=== PATIENT | male | born 1995 | race Caucasian/White ===

== ENCOUNTER 2022-07-17 22:23 | Emergency (ER) | payer OTHER ==
[2022-07-17] MEDS ORDERED: Sodium Chloride 0.9% 1000 ML 1,000 ML IV STA (23:02)
--- NOTE | 2022-07-17 23:08 | ERPHSYRPT ---
- History of Present Illness Time Seen by Provider: 07/17/22 22:50 Historian: patient, EMS Exam Limitations: no limitations Patient Subjective Stated Complaint: EMS states "he started having flank pain and rib pain about 20 mins ago. He says he has been eating and drinking okay. I think it is anxiety related." Triage Nursing Assessment: Pt presents to ED by Medic 1, pt alert and oriented x3, pt c/o mainly rib pain bilaterally, ems states that he was complaining of flank pain but pt is mainly holding and c/o of rib pain on both sides that star shaun around 2200, pt oral intake was around 2200, pt last BM was 07/17/2022 in AM, pt is very anxious in triage, pt was rating pain 10/10 when he called ambulance but now is rating 7/10 pain, pt did not take any thing for pain, pt states it hurt when he takes a deep breath Physician History: This is a 26-year-old white male who is on sertraline for depression and no other medications and presents via EMS because of significant bilateral upper quadrant abdominal pain and bilateral rib pain that was sudden onset approximately 20 minutes prior to arrival. Patient told EMS that the pain was a 10 out of 10 and without any treatment, the patient states his pain dropped to this 5-7 out of 10 in the emergency room. It is still present. He has never had anything like this before. He denies any kind of injury. Patient has been eating and drinking well without any problems Timing/Duration: today Quality: aching Abdominal Pain Onset Location: RUQ, LUQ Severity of Pain-Max: moderate Severity of Pain-Current: mild (Moderate) Associated Symptoms: denies symptoms Previous symptoms: no prior history Allergies/Adverse Reactions: No Known Drug Allergies Allergy (Verified 07/17/22 22:27) Hx Tetanus, Diphtheria Vaccination/Date Given: Yes Hx Influenza Vaccination/Date Given: No Hx Pneumococcal Vaccination/Date Given: No Immunizations Up to Date: Yes Travel Risk - International Travel Have you traveled outside of the country in past 3 weeks: No - Coronavirus Screening Are you exhibiting any of the following symptoms?: No Close contact with a COVID-19 positive Pt in past 14-21 Days: No - Vaccine Status Have you recieved a Covid-19 vaccination: Yes Warehouse Delivery Manager: Aras - Review of Systems Constitutional: No Symptoms Eyes: No Symptoms Ears, Nose, & Throat: No Symptoms Respiratory: No Symptoms Cardiac: No Symptoms Abdominal/Gastrointestinal: Abdominal Pain (Bilateral upper quadrants), No Nausea, No Vomiting, No Diarrhea, No Constipation Genitourinary Symptoms: No Symptoms Skin: No Symptoms, Rash (Bilateral lower ribs hurt as well) Neurological: No Symptoms Psychological: Anxiety, Depression Endocrine: No Symptoms Hematologic/Lymphatic: No Symptoms Immunological/Allergic: No Symptoms, Pollen Allergy - Past Medical History Pertinent Past Medical History: Yes Neurological History: No Pertinent History ENT History: No Pertinent History Cardiac History: No Pertinent History Respiratory History: No Pertinent History Endocrine Medical History: No Pertinent History Musculoskeletal History: No Pertinent History GI Medical History: No Pertinent History History: No Pertinent History Psycho-Social History: Depression Male Reproductive Disorders: No Pertinent History - Past Surgical History Past Surgical History: Yes Neuro Surgical History: No Pertinent History Cardiac: No Pertinent History Respiratory: No Pertinent History Gastrointestinal: No Pertinent History Genitourinary: No Pertinent History Musculoskeletal: Orthopedic Surgery Male Surgical History: No Pertinent History Other Surgical History: Left foot surgery - Social History Smoking Status: Never smoker Exposure to second hand smoke: No Drug Use: none Patient Lives Alone: Yes - Nursing Vital Signs Nursing Vital Signs: Initial Vital Signs Temperature 97.7 F 07/17/22 22:27 Pulse Rate 95 H 07/17/22 22:27 Respiratory Rate 18 07/17/22 22:27 Blood Pressure 124/80 07/17/22 22:27 O2 Sat by Pulse Oximetry 99 07/17/22 22:27 Pain Scale Pain Intensity [Right 7 Generalized] Pain Intensity 4 - Physical Exam General Appearance: no apparent distress, alert, anxiety Eye Exam: PERRL/EOMI, eyes nml inspection Ears, Nose, Throat Exam: dry mucous membranes Neck Exam: normal inspection, non-tender, supple, full range of motion Respiratory Exam: normal breath sounds, lungs clear, airway intact, No chest tenderness, No respiratory distress Cardiovascular Exam: regular rate/rhythm, normal heart sounds, normal peripheral pulses Gastrointestinal/Abdomen Exam: soft, normal bowel sounds, tenderness (Mild bilateral upper quadrants), guarding (Bilateral upper quadrants), No rebound Rectal Exam: not done Back Exam: normal inspection, normal range of motion, No CVA tenderness, No vertebral tenderness Extremity Exam: normal inspection, normal range of motion, pelvis stable Neurologic Exam: alert, oriented x 3, cooperative, clinical material handler II-XII nml as tested, normal mood/affect, nml cerebellar function, nml station & gait, sensation nml Skin Exam: normal color, warm, dry Lymphatic Exam: No adenopathy SpO2 Interpretation: normal SpO2: 99 O2 Delivery: Room Air - Course Nursing assessment & vital signs reviewed: Yes Ordered Tests: Active Orders 24 hr Category Date Time Status IV Insertion STAT Care 07/17/22 23:02 Active ABDOMEN AND PELVIS W/0 CONTRAS [CT] Stat Exams 07/18/22 00:30 Taken CHEST 1 VIEW (PORTABLE) Stat Exams 07/17/22 23:02 Taken AMYLASE Stat Lab 07/17/22 23:14 Completed CBC W DIFF Stat Lab 07/17/22 23:14 Completed CMP Stat Lab 07/17/22 23:14 Completed LIPASE Stat Lab 07/17/22 23:14 Completed UA W/RFX CULTURE Stat Lab 07/17/22 23:19 Completed Urine Triage Profile Stat Lab 07/17/22 23:19 Completed Medication Summary Discontinued Medications Generic Name Dose Route Start Last Admin Trade Name Anton PRN Reason Stop Dose Admin Sodium Chloride 1,000 mls @ 999 mls/hr 07/17/22 23:02 07/18/22 00:31 Sodium Chloride 0.9% 1000 Ml IV 07/18/22 00:02 Infused .Q1H1M STA Infusion Sodium Chloride Confirm 07/17/22 23:21 Sodium Chloride 0.9% 1000 Ml Administered 07/17/22 23:22 Dose 1,000 mls @ ud .ROUTE .STK-MED ONE Potassium Chloride 10 meq 07/18/22 00:21 07/18/22 00:27 Potassium Chloride Tab 10 Meq Tab PO 07/18/22 00:22 10 meq STAT ONE Administration Potassium Chloride Confirm 07/18/22 00:27 Potassium Chloride Tab 10 Meq Tab Administered 07/18/22 00:28 Dose 10 meq PO .STK-MED ONE Lab/Rad Data: Laboratory Result Diagrams 07/17/22 23:14 07/17/22 23:14 Laboratory Results 07/17/22 07/17/22 07/17/22 Range/Units 23:33 23:19 23:19 WBC (4.0-10.5) x10^3/uL RBC (4.1-5.6) x10^6/uL Hgb (12.5-18.0) g/dL Hct (42-50) % MCV (78-100) fL MCH (26-32) pg MCHC (32-36) g/dL RDW (11.5-14.0) % Plt Count (150-450) x10^3/uL MPV (7.5-11.0) fL Gran % (36.0-66.0) % Immature Gran % (Auto) (0.00-0.4) % Nucleat RBC Rel Count (0.00-0.1) % Eos # (Auto) (0-0.5) x10^3/uL Immature Gran # (Auto) (0.00-0.03) x10^3u/L Absolute Lymphs (auto) (1.0-4.6) x10^3/uL Absolute Monos (auto) (0.0-1.3) x10^3/uL Absolute Nucleated RBC (0.00-0.01) x10^3u/L Lymphocytes % (24.0-44.0) % Monocytes % (0.0-12.0) % Eosinophils % (0.00-5.0) % Basophils % (0.0-0.4) % Absolute Granulocytes (1.4-6.9) x10^3/uL Basophils # (0-0.4) x10^3/uL Sodium (137-145) mmol/L Potassium (3.5-5.1) mmol/L Chloride (98-107) mmol/L Carbon Dioxide (22-30) mmol/L Anion Gap (5-15) MEQ/L BUN (9-20) mg/dL Creatinine (0.66-1.25) mg/dL Estimated GFR ML/MIN Glucose (74-106) mg/dL Calcium (8.4-10.2) mg/dL Total Bilirubin (0.2-1.3) mg/dL AST (17-59) U/L ALT (0-50) U/L Alkaline Phosphatase (38-126) U/L Serum Total Protein (6.3-8.2) g/dL Albumin (3.5-5.0) g/dL Amylase (30-110) U/L Lipase (23-300) U/L Urinalys Dipstick Clnc MAIN LAB Urine Color YELLOW (YELLOW) Urine Appearance CLEAR (CLEAR) Urine pH 8.5 (5-6) Ur Specific Hus[place] 1.020 (1.005-1.025) POC Urine Protein Conf TRACE (Negative) Urine Ketones NEGATIVE (NEGATIVE) Urine Nitrite NEGATIVE (NEGATIVE) Urine Bilirubin NEGATIVE (NEGATIVE) Urine Urobilinogen >=8.0 (0-1) mg/dL Urine Leukocytes NEGATIVE (NEGATIVE) Urine WBC (Auto) NONE (0-5) /HPF Urine RBC (Auto) NONE (0-2) /HPF U Epithel Cells (Auto) NONE (FEW) /HPF Urine Bacteria (Auto) NONE (NEGATIVE) /HPF Urine RBC NEGATIVE (0-5) Gilberto/ul Urine Mucus (Auto) SLIGHT (NEGATIVE) /HPF Ur Culture Indicated? NO Urine Glucose NEGATIVE (NEGATIVE) mg/dL Urine Opiates Level NEGATIVE (NEGATIVE) Ur Methadone NEGATIVE (NEGATIVE) Urine Barbiturates NEGATIVE (NEGATIVE) Ur Phencyclidine (PCP) NEGATIVE (NEGATIVE) Urine Amphetamine NEGATIVE (NEGATIVE) U Benzodiazepine Level NEGATIVE (NEGATIVE) Urine Cocaine NEGATIVE (NEGATIVE) Urine Marijuana (THC) NEGATIVE (NEGATIVE) Influenza Type A Ag NEGATIVE (NEGATIVE) Influenza Type B Ag NEGATIVE (NEGATIVE) RSV (PCR) NEGATIVE (Negative) SARS-CoV-2 (PCR) NEGATIVE (NEGATIVE) 07/17/22 07/17/22 Range/Units 23:14 23:14 WBC 7.2 (4.0-10.5) x10^3/uL RBC 4.75 (4.1-5.6) x10^6/uL Hgb 14.5 (12.5-18.0) g/dL Hct 43.3 (42-50) % MCV 91.2 (78-100) fL MCH 30.5 (26-32) pg MCHC 33.5 (32-36) g/dL RDW 12.8 (11.5-14.0) % Plt Count 215 (150-450) x10^3/uL MPV 11.2 H (7.5-11.0) fL Gran % 59.8 (36.0-66.0) % Immature Gran % (Auto) 0.3 (0.00-0.4) % Nucleat RBC Rel Count 0.0 (0.00-0.1) % Eos # (Auto) 0.07 (0-0.5) x10^3/uL Immature Gran # (Auto) 0.02 (0.00-0.03) x10^3u/L Absolute Lymphs (auto) 1.94 (1.0-4.6) x10^3/uL Absolute Monos (auto) 0.80 (0.0-1.3) x10^3/uL Absolute Nucleated RBC 0.00 (0.00-0.01) x10^3u/L Lymphocytes % 27.1 (24.0-44.0) % Monocytes % 11.2 (0.0-12.0) % Eosinophils % 1.0 (0.00-5.0) % Basophils % 0.6 (0.0-0.4) % Absolute Granulocytes 4.28 (1.4-6.9) x10^3/uL Basophils # 0.04 (0-0.4) x10^3/uL Sodium 144 (137-145) mmol/L Potassium 3.2 L (3.5-5.1) mmol/L Chloride 108 H (98-107) mmol/L Carbon Dioxide 27 (22-30) mmol/L Anion Gap 11.7 (5-15) MEQ/L BUN 16 (9-20) mg/dL Creatinine 0.88 (0.66-1.25) mg/dL Estimated GFR > 60.0 ML/MIN Glucose 104 (74-106) mg/dL Calcium 8.7 (8.4-10.2) mg/dL Total Bilirubin 1.10 (0.2-1.3) mg/dL AST 70 H (17-59) U/L ALT 83 H (0-50) U/L Alkaline Phosphatase 52 (38-126) U/L Serum Total Protein 6.6 (6.3-8.2) g/dL Albumin 4.1 (3.5-5.0) g/dL Amylase 98 (30-110) U/L Lipase 125 (23-300) U/L Urinalys Dipstick Clnc Urine Color (YELLOW) Urine Appearance (CLEAR) Urine pH (5-6) Ur Specific Hus[place] (1.005-1.025) POC Urine Protein Conf (Negative) Urine Ketones (NEGATIVE) Urine Nitrite (NEGATIVE) Urine Bilirubin (NEGATIVE) Urine Urobilinogen (0-1) mg/dL Urine Leukocytes (NEGATIVE) Urine WBC (Auto) (0-5) /HPF Urine RBC (Auto) (0-2) /HPF U Epithel Cells (Auto) (FEW) /HPF Urine Bacteria (Auto) (NEGATIVE) /HPF Urine RBC (0-5) Gilberto/ul Urine Mucus (Auto) (NEGATIVE) /HPF Ur Culture Indicated? Urine Glucose (NEGATIVE) mg/dL Urine Opiates Level (NEGATIVE) Ur Methadone (NEGATIVE) Urine Barbiturates (NEGATIVE) Ur Phencyclidine (PCP) (NEGATIVE) Urine Amphetamine (NEGATIVE) U Benzodiazepine Level (NEGATIVE) Urine Cocaine (NEGATIVE) Urine Marijuana (THC) (NEGATIVE) Influenza Type A Ag (NEGATIVE) Influenza Type B Ag (NEGATIVE) RSV (PCR) (Negative) SARS-CoV-2 (PCR) (NEGATIVE) - Progress Progress: improved, pain not gone completely, re-examined Progress Note: 07/18/22 00:19 Chest x-ray shows no acute cardiopulmonary process. 07/18/22 01:07 CAT scan of the abdomen pelvis is negative for any acute intra abdominal or intrapelvic process. Patient states his pain has resolved Counseled pt/family regarding: lab results, diagnosis, need for follow-up, rad results - Departure Departure Disposition: Home Clinical Impression: Rib pain, Hypokalemia, Abdominal pain Condition: Stable Critical Care Time: No Referrals: PEPE SHAW MD [Primary Care Provider] - Follow up/PCP as directed Additional Instructions: Use Tylenol and ibuprofen for pain control. Eat bananas, eat plenty of nuts and green leafy vegetables to help raise your potassium levels. Follow-up with Dr. Shaw in his office by phone tomorrow to make arrangements for follow-up appointment
[2022-07-17] MEDS ORDERED: Sodium Chloride 0.9% 1000 ML 1,000 ML ONE (23:21)
[2022-07-17 23:36] LABS: Absolute Neutrophil Ct (ANC) 4.28 x10^3/uL (1.4-6.9); Basophil (Absolute #) 0.04 x10^3/uL (0-0.4); Eosinophil (Absolute #) 0.07 x10^3/uL (0-0.5); Hematocrit 43.3 % (42-50); Hemoglobin 14.5 g/dL (12.5-18.0); Lymphocyte (Absolute #) 1.94 x10^3/uL (1.0-4.6); Lymphocytes % 27.1 % (24.0-44.0); Mean Cell Volume 91.2 fL (78-100); Mean Corpuscular Hemoglobin 30.5 pg (26-32); Mean Corpuscular Hgb Concent. 33.5 g/dL (32-36); Mean Platelet Volume 11.2 fL (7.5-11.0); Monocytes % 11.2 % (0.0-12.0); Neutrophil % 59.8 % (36.0-66.0); Platelet Count 215 x10^3/uL (150-450); Red Blood Count 4.75 x10^6/uL (4.1-5.6); Red Cell Distribution Width 12.8 % (11.5-14.0); White Blood Count 7.2 x10^3/uL (4.0-10.5)
[2022-07-17 23:38] LABS: Appearance CLEAR (CLEAR)
[2022-07-17 23:39] LABS: Bilirubin NEGATIVE (NEGATIVE); Dipstick done @ ? MAIN LAB; Glucose NEGATIVE (NEGATIVE); Ketones NEGATIVE (NEGATIVE); Nitrite NEGATIVE (NEGATIVE); Ph 8.5 (5-6); Protein,Urine Dip TRACE (Negative); RBC NEGATIVE Ery/ul (0-5); Urobilinogen >=8.0 mg/dL (0-1)
[2022-07-17 23:48] LABS: Mucus SLIGHT /HPF (NEGATIVE)
[2022-07-17 23:50] LABS: Urine Cultured Indicated? NO
[2022-07-17 23:54] LABS: ALBUMIN 4.1 g/dL (3.5-5.0); ALKALINE PHOSPHATASE 52 U/L (38-126); AMYLASE 98 U/L (30-110); ANION GAP 11.7 MEQ/L (5-15); BLOOD UREA NITROGEN 16 mg/dL (9-20); CHLORIDE 108 mmol/L (98-107); Calcium 8.7 mg/dL (8.4-10.2); Carbon Dioxide 27 mmol/L (22-30); Creatinine 1 0.88 mg/dL (0.66-1.25); EST GLOMERULAR FILTRATION RATE > 60.0 ML/MIN; Glucose 104 mg/dL (74-106); LIPASE 125 U/L (23-300); Potassium 3.2 mmol/L (3.5-5.1); SGOT/AST 70 U/L (17-59); SGPT/ALT 83 U/L (0-50); SODIUM 144 mmol/L (137-145); Total Protein 6.6 g/dL (6.3-8.2)
[2022-07-18 00:04] LABS: Amphetamine,Urine NEGATIVE (NEGATIVE); Barbiturate,Urine NEGATIVE (NEGATIVE); Benzodiazepine,Urine NEGATIVE (NEGATIVE); Cocaine,Urine NEGATIVE (NEGATIVE); Methadone,Urine NEGATIVE (NEGATIVE); Opiate,Urine NEGATIVE (NEGATIVE); PCP,Urine NEGATIVE (NEGATIVE); THC,Urine NEGATIVE (NEGATIVE)
[2022-07-18 00:14] VITALS: PULSE 79
[2022-07-18 00:16] LABS: INFLUENZA A NEGATIVE (NEGATIVE); INFLUENZA B NEGATIVE (NEGATIVE); RESPIRATORY SYNCTIAL VIRUS NEGATIVE (Negative); SARS-CoV-2 Xpert Express NEGATIVE (NEGATIVE)
[2022-07-18] MEDS ORDERED: Klor Con PO ONE ×2 (00:21→00:27)
[2022-07-18 01:07] VITALS: BP 124/82
[2022-07-18 01:08] VITALS: O2SAT 99
--- NOTE | 2022-07-19 22:20 | XRAY ---
Exam: AP portable chest film from 07/17/2022. Comparison: None. Indication: Bilateral rib pain; no known injury. Findings: The heart size and contour are normal. The parviz and mediastinal structures appear unremarkable. The lungs are adequately inflated and appear clear. Pulmonary vascularity is normal. No pneumothorax or pleural effusion is seen. No acute osseous process is seen. Specifically, I see no findings to suggest a rib fracture within the [id number] of the chest. Impression: 1. No acute cardiopulmonary disease is seen.
--- NOTE | 2022-07-20 12:52 | XRAY ---
Exam: CT of the abdomen and pelvis without IV contrast from 07/18/2022. CTDI: 3.84 mGy Comparison: None. Indication: 26-year-old male with bilateral upper quadrant abdominal pain; no history of prior surgery. Technique: Non-IV contrast axial images were obtained through the abdomen and pelvis. Reconstructed coronal and sagittal images were created and reviewed. No oral contrast was given. Findings: The lung bases reveals minimal posterior dependent linear atelectasis. The remainder of the lung bases appears clear. The heart size is normal. There is mild amount of fluid/secretions/food within the stomach lumen. A high attenuation oval-shaped pill/capsule is seen within the posterior aspect of the stomach lumen on axial image #14. The liver is of normal size and reveals no mass or intrahepatic biliary duct distention. However, I note multiple gallstones within the gallbladder lumen measuring up to 1.8 cm in diameter. No gallbladder enlargement or gallbladder wall thickening is seen. The common bile duct does not appears distended. Spleen is of normal size and reveals no mass. The pancreas and adrenal glands appear unremarkable. The kidneys are of normal size. I note a small exophytic slightly hyperattenuated 7-8 mm in diameter lesion arising off the lateral margin of the inferior pole of the left kidney on axial image #39. This measures about plus 36.0 Hounsfield units. It is likely this represents a small left renal cyst with some proteinaceous material within it. Consider further evaluation with ultrasound. The abdominal aorta appears of normal diameter. No abnormal retroperitoneal lymphadenopathy is seen. There is no free intraperitoneal air or bowel containing ventral hernia. A mild amount of scattered stool is seen throughout the colon. No bowel distention to suggest obstruction is seen. No definite bowel wall thickening is seen. I see no findings of appendicitis within the right lower quadrant. The urinary bladder appears distended, but otherwise appears unremarkable. No abnormal pelvic mass or pelvic lymphadenopathy is seen. There is no free intraperitoneal fluid. The seminal vesicles and prostate gland appear unremarkable. The inguinal and femoral regions appear unremarkable. The skeleton reveals no acute fracture or aggressive bone lesion. A few scattered tiny bone islands are seen within the superior aspect of the L5 vertebral body and within both femoral heads. There is very slight convexity of the lower lumbar spine toward the left centered at L3-L4. Impression: 1. There is evidence of moderate cholelithiasis. No gallbladder enlargement, gallbladder wall thickening, or biliary duct distention is seen. Further evaluation with a gallbladder ultrasound may be helpful. 2. There appears to be a tiny hyperattenuated 7-8 mm nodule abutting the lower pole of the left kidney, likely representing a cyst with some proteinaceous material within it. Further evaluation with a renal ultrasound may be helpful. 3. Normal appendix. 4. Mild scattered fecal colonic residue. 5. No other acute process is seen within the abdomen or pelvis.
== END 2022-07-18 01:18 | disposition home or self-care (01) ==
LOC: ED 22:23
DX: R07.81 Pleurodynia (principal); E87.6 Hypokalemia; R10.11 Right upper quadrant pain; R10.12 Left upper quadrant pain; Z79.899 Other long term (current) drug therapy
CPT/HCPCS: 0241U; 36000; 36415; 71045; 74176; 80053; 80307; 81015; 82150; 83690; 85025; 96360; 99284; A9270-GY

== ENCOUNTER 2022-10-12 01:47 | Emergency (ER) | payer OTHER ==
[2022-10-12 02:53] LABS: ANION GAP 9.7 MEQ/L (5-15); BLOOD UREA NITROGEN 15 mg/dL (9-20); CHLORIDE 109 mmol/L (98-107); Calcium 8.6 mg/dL (8.4-10.2); Carbon Dioxide 30 mmol/L (22-30); Creatinine 1 0.73 mg/dL (0.66-1.25); EST GLOMERULAR FILTRATION RATE > 60.0 ML/MIN; Glucose 114 mg/dL (74-106); MAGNESIUM 2.4 mg/dL (1.6-2.3); Potassium 4.1 mmol/L (3.5-5.1); SODIUM 145 mmol/L (137-145)
[2022-10-12 02:58] VITALS: BP 113/78
--- NOTE | 2022-10-12 03:24 | ERPHSYRPT ---
- History of Present Illness Time Seen by Provider: 10/12/22 02:20 Source: patient Exam Limitations: no limitations Patient Subjective Stated Complaint: pt states "both my sides of my ribs started hurting about 45 minutes ago but it feels better now." Triage Nursing Assessment: pt ambulatory to room by self guarding both sides of ribs, pt alert and oriented x3, pt c/o bilateral rib pain that started about 45 mins prior to arrival, pt denies any shortness of breath, cough, or any trauma. pt rates pain 4/10 Physician History: This is a 27-year-old white male patient who 45 minutes prior to arrival had sudden onset of bilateral rib pain. There was no trauma. He has not been coughing. His symptoms were improved prior to arrival to emergency department but they are still present. Patient had similar symptoms approximately 3 months ago. At that time he had had several episodes of coughing which she does not h ave today. He also was found to have low potassium level 3 months ago. Patient has no known cardiac issues. He briefly spoke to his primary care provider, per his report, after the last episode but they decided to wait to see if he had another. Patient is not on any new medications. He has no flulike symptoms. Timing/Duration: today Severity: mild (To moderate) Associated Symptoms: denies symptoms, No shortness of breath, No chest pain Allergies/Adverse Reactions: No Known Drug Allergies Allergy (Verified 10/12/22 01:57) Hx Tetanus, Diphtheria Vaccination/Date Given: Yes Hx Influenza Vaccination/Date Given: No Hx Pneumococcal Vaccination/Date Given: No Travel Risk - International Travel Have you traveled outside of the country in past 3 weeks: No - Coronavirus Screening Are you exhibiting any of the following symptoms?: No Close contact with a COVID-19 positive Pt in past 14-21 Days: No - Vaccine Status Have you recieved a Covid-19 vaccination: Yes Street Sweeper: Host Committee - Review of Systems Constitutional: No Symptoms Eyes: No Symptoms Ears, Nose, & Throat: No Symptoms Respiratory: No Symptoms Cardiac: No Symptoms Abdominal/Gastrointestinal: No Symptoms Genitourinary Symptoms: No Symptoms Musculoskeletal: Other (Bilateral rib pain) Skin: No Symptoms Neurological: No Symptoms Psychological: No Symptoms Endocrine: No Symptoms Hematologic/Lymphatic: No Symptoms Immunological/Allergic: No Symptoms All Other Systems: Reviewed and Negative - Past Medical History Pertinent Past Medical History: Yes Neurological History: No Pertinent History ENT History: No Pertinent History Cardiac History: No Pertinent History Respiratory History: No Pertinent History Endocrine Medical History: No Pertinent History Musculoskeletal History: No Pertinent History GI Medical History: No Pertinent History History: No Pertinent History Psycho-Social History: Depression Male Reproductive Disorders: No Pertinent History - Past Surgical History Past Surgical History: Yes Neuro Surgical History: No Pertinent History Cardiac: No Pertinent History Respiratory: No Pertinent History Gastrointestinal: No Pertinent History Genitourinary: No Pertinent History Musculoskeletal: Orthopedic Surgery Male Surgical History: No Pertinent History Other Surgical History: Left foot surgery - Social History Smoking Status: Never smoker Exposure to second hand smoke: No Drug Use: none Patient Lives Alone: No - Nursing Vital Signs Nursing Vital Signs: Initial Vital Signs Temperature 97.9 F 10/12/22 01:58 Pulse Rate 71 10/12/22 01:58 Respiratory Rate 18 10/12/22 01:58 Blood Pressure 118/76 10/12/22 01:58 O2 Sat by Pulse Oximetry 97 10/12/22 01:58 Pain Scale Pain Intensity [Lower] 4 Pain Intensity 4 - Physical Exam General Appearance: no apparent distress, alert, anxiety Eye Exam: PERRL/EOMI, eyes nml inspection Ears, Nose, Throat Exam: normal ENT inspection, moist mucous membranes Neck Exam: normal inspection, non-tender, supple, full range of motion Respiratory Exam: normal breath sounds, lungs clear, airway intact, No chest tenderness, No respiratory distress Cardiovascular Exam: regular rate/rhythm, normal heart sounds, normal peripheral pulses Gastrointestinal/Abdomen Exam: soft, normal bowel sounds, No tenderness Rectal Exam: not done Back Exam: normal inspection, normal range of motion, No CVA tenderness, No vertebral tenderness Extremity Exam: normal inspection, normal range of motion, pelvis stable Neurologic Exam: alert, oriented x 3, cooperative, guest relations officer II-XII nml as tested, normal mood/affect, nml cerebellar function, nml station & gait, sensation nml Skin Exam: normal color, warm, dry Lymphatic Exam: No adenopathy SpO2 Interpretation: normal SpO2: 99 O2 Delivery: Room Air - Course Nursing assessment & vital signs reviewed: Yes Ordered Tests: Active Orders 24 hr Category Date Time Status CHEST 2 VIEWS (PA AND LAT) Stat Exams 10/12/22 02:13 Taken BMP Stat Lab 10/12/22 02:37 Completed MAG [MAGNESIUM] Stat Lab 10/12/22 02:37 Completed Lab/Rad Data: Laboratory Result Diagrams 10/12/22 02:37 Laboratory Results 10/12/22 Range/Units 02:37 Sodium 145 (137-145) mmol/L Potassium 4.1 (3.5-5.1) mmol/L Chloride 109 H (98-107) mmol/L Carbon Dioxide 30 (22-30) mmol/L Anion Gap 9.7 (5-15) MEQ/L BUN 15 (9-20) mg/dL Creatinine 0.73 (0.66-1.25) mg/dL Estimated GFR > 60.0 ML/MIN Glucose 114 H (74-106) mg/dL Calcium 8.6 (8.4-10.2) mg/dL Magnesium 2.4 H (1.6-2.3) mg/dL - Progress Progress: improved Counseled pt/family regarding: lab results, diagnosis, need for follow-up, rad results - Departure Departure Disposition: Home Clinical Impression: Rib pain Condition: Stable Critical Care Time: No Referrals: PEPE SHAW MD [Primary Care Provider] - Follow up/PCP as directed Additional Instructions: Use Tylenol and ibuprofen for pain control. Follow-up with your primary care physician for further evaluation and management.
[2022-10-12 04:09] VITALS: PULSE 58; O2SAT 98
--- NOTE | 2022-10-12 08:04 | XRAY ---
Indication: Bilateral rib pain. No known injury. Comparison: July 17, 2022 PA/lateral chest demonstrates new mild left infrahilar infiltrate versus atelectasis. Remaining heart, lungs, and bony thorax unremarkable. Comment: Left lung finding not reported by the interpreting ER clinician. Telephone report was given to Dr. He at 0759 hours on October 12, 2022.
== END 2022-10-12 04:09 | disposition home or self-care (01) ==
LOC: ED 01:47
DX: J18.9 Pneumonia, unspecified organism (principal); R07.81 Pleurodynia
CPT/HCPCS: 36415; 71046; 80048; 83735; 99283

== ENCOUNTER 2023-08-14 17:30 | Emergency (ER) | payer OTHER ==
[2023-08-14 17:40] VITALS: TEMP 97.2; O2SAT 100
--- NOTE | 2023-08-14 17:56 | ERPHSYRPT ---
- History of Present Illness Source: patient Exam Limitations: no limitations Patient Subjective Stated Complaint: Pt states "I was at work and I started to huccup allot and my face started to get numb, then I stopped hiccuping and my arms and hands are numb and I am lightheaded." Triage Nursing Assessment: Pt presented alert and oriented X 3, skin pwd. Pt ambulates with an upright steady gait, able to speak in clear full sentences. Pt resting comfortably on the bed. 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 He denies any focal weakness, headache, fever, chest pain, dyspnea, melena, hematochezia, and new meds. Patient states that he feels very lightheaded. Palpitations are denied. Patient denies all drug and alcohol use. 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 Timing/Duration: other (2 hours) Severity: mild Modifying Factors: Improves With: nothing Associated Symptoms: denies symptoms Allergies/Adverse Reactions: No Known Drug Allergies Allergy (Verified 10/12/22 01:57) Home Medications: Sertraline HCl 50 mg [Zoloft 50 mg Tablet] 50 mg PO DAILY 08/14/23 [History] Hx Tetanus, Diphtheria Vaccination/Date Given: Yes Hx Influenza Vaccination/Date Given: No Hx Pneumococcal Vaccination/Date Given: No Immunizations Up to Date: Yes Travel Risk - International Travel Have you traveled outside of the country in past 3 weeks: No - Coronavirus Screening Are you exhibiting any of the following symptoms?: No Close contact with a COVID-19 positive Pt in past 14-21 Days: No - Vaccine Status Have you recieved a Covid-19 vaccination: Yes [employer] Worker: [employer] - Review of Systems Constitutional: No Symptoms Eyes: No Symptoms Ears, Nose, & Throat: No Symptoms Respiratory: No Symptoms Cardiac: No Symptoms Abdominal/Gastrointestinal: No Symptoms Genitourinary Symptoms: No Symptoms Musculoskeletal: No Symptoms Skin: No Symptoms Psychological: No Symptoms Endocrine: No Symptoms Hematologic/Lymphatic: No Symptoms Immunological/Allergic: No Symptoms - Past Medical History Pertinent Past Medical History: Yes Neurological History: No Pertinent History ENT History: No Pertinent History Cardiac History: No Pertinent History Respiratory History: No Pertinent History Endocrine Medical History: No Pertinent History Musculoskeletal History: No Pertinent History GI Medical History: No Pertinent History History: No Pertinent History Psycho-Social History: Anxiety, Depression Male Reproductive Disorders: No Pertinent History - Past Surgical History Past Surgical History: Yes Neuro Surgical History: No Pertinent History Cardiac: No Pertinent History Respiratory: No Pertinent History Gastrointestinal: Cholecystectomy Genitourinary: No Pertinent History Musculoskeletal: Orthopedic Surgery Male Surgical History: No Pertinent History Other Surgical History: Left foot surgery - Social History Smoking Status: Never smoker Exposure to second hand smoke: No Drug Use: none Patient Lives Alone: No - Nursing Vital Signs Nursing Vital Signs: Initial Vital Signs Temperature 97.2 F 08/14/23 17:36 Pulse Rate 89 08/14/23 17:36 Respiratory Rate 24 08/14/23 17:36 Blood Pressure 122/84 08/14/23 17:36 O2 Sat by Pulse Oximetry 100 08/14/23 17:36 Pain Scale Pain Intensity 0 WNL - Physical Exam General Appearance: no apparent distress Eye Exam: PERRL/EOMI, eyes nml inspection Ears, Nose, Throat Exam: normal ENT inspection, TMs normal, pharynx normal, moist mucous membranes Neck Exam: normal inspection, non-tender, supple, full range of motion, No meningismus, No mass, No Brudzinski, No Kernig's, No carotid bruit Respiratory Exam: normal breath sounds, lungs clear, airway intact, No respiratory distress Cardiovascular Exam: regular rate/rhythm, normal heart sounds, normal peripheral pulses, capillary refill <2 sec, No murmur Gastrointestinal/Abdomen Exam: soft, normal bowel sounds, No tenderness Extremity Exam: normal inspection, normal range of motion Neurologic Exam: alert, oriented x 3, cooperative, 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, normal mood/affect, nml cerebellar function, nml station & gait, sensation nml Skin Exam: normal color, warm, dry, No rash Lymphatic Exam: No adenopathy SpO2 Interpretation: normal SpO2: 100 O2 Delivery: Room Air - Course Nursing assessment & vital signs reviewed: Yes EKG Interpreted by Me: RATE (NSR/Rate76/Normal QT-QTc/Nonspecific ST changes) Ordered Tests: Active Orders 24 hr Category Date Time Status EKG-ER Only STAT Care 08/14/23 17:49 Active CBC W DIFF Stat Lab 08/14/23 17:57 Completed CMP Stat Lab 08/14/23 17:57 Completed TROPONIN Q4H Lab 08/14/23 17:57 Completed TROPONIN Q4H Lab 08/14/23 22:00 Ordered TROPONIN Q4H Lab 08/15/23 02:00 Ordered UA W/RFX UR CULTURE Stat Lab 08/14/23 18:46 Completed Urine Triage Profile Stat Lab 08/14/23 18:46 Completed Medication Summary Discontinued Medications Generic Name Dose Route Start Last Admin Trade Name Freq PRN Reason Stop Dose Admin Potassium Chloride 40 meq 08/14/23 18:36 08/14/23 18:51 Potassium Chloride Tab 10 Meq Tab PO 08/14/23 18:37 40 meq STAT ONE Administration Potassium Chloride Confirm 08/14/23 18:51 Potassium Chloride Tab 10 Meq Tab Administered 08/14/23 18:52 Dose 40 meq PO .STK-MED ONE Lab/Rad Data: Laboratory Result Diagrams 08/14/23 17:57 08/14/23 17:57 Laboratory Results 08/14/23 08/14/23 08/14/23 Range/Units 18:46 18:46 17:57 WBC (4.0-10.5) x10^3/uL RBC (4.1-5.6) x10^6/uL Hgb (12.5-18.0) g/dL Hct (42-50) % MCV (78-100) fL MCH (26-32) pg MCHC (32-36) g/dL RDW (11.5-14.0) % Plt Count (150-450) x10^3/uL MPV (7.5-11.0) fL Gran % (36.0-66.0) % Immature Gran % (Auto) (0.00-0.4) % Nucleat RBC Rel Count (0.00-0.1) % Eos # (Auto) (0-0.5) x10^3/uL Immature Gran # (Auto) (0.00-0.03) x10^3u/L Absolute Lymphs (auto) (1.0-4.6) x10^3/uL Absolute Monos (auto) (0.0-1.3) x10^3/uL Absolute Nucleated RBC (0.00-0.01) x10^3u/L Lymphocytes % (24.0-44.0) % Monocytes % (0.0-12.0) % Eosinophils % (0.00-5.0) % Basophils % (0.0-0.4) % Absolute Granulocytes (1.4-6.9) x10^3/uL Basophils # (0-0.4) x10^3/uL Sodium (137-145) mmol/L Potassium (3.5-5.1) mmol/L Chloride (98-107) mmol/L Carbon Dioxide (22-30) mmol/L Anion Gap (5-15) MEQ/L BUN (9-20) mg/dL Creatinine (0.66-1.25) mg/dL Estimated GFR ML/MIN Glucose (74-106) mg/dL Calcium (8.4-10.2) mg/dL Total Bilirubin (0.2-1.3) mg/dL AST (17-59) U/L ALT (0-50) U/L Alkaline Phosphatase (38-126) U/L Troponin I < 0.012 (0.000-0.034) ng/mL Serum Total Protein (6.3-8.2) g/dL Albumin (3.5-5.0) g/dL Urine Color Yellow (Yellow) Urine Appearance Clear (Clear) Urine pH 8.0 (4.6-8.0) Ur Specific [place] 1.025 (1.005-1.030) Urine Protein Negative (Negative) Urine Glucose (UA) Negative (Negative) mg/dL Urine Ketones Trace A (Negative) Urine Blood Negative (Negative) Urine Nitrite Negative (Negative) Urine Bilirubin Negative (Negative) Urine Urobilinogen 1.0 A (0.2) mg/dL Ur Leukocyte Esterase Negative (Negative) U Hyaline Cast (Auto) NONE SEEN (0-2) /LPF Urine Microscopic RBC 0-2 (0-5) /HPF Urine Microscopic WBC 0-2 (0-5) /HPF Ur Epithelial Cells None Seen (None Seen) /HPF Urine Bacteria None Seen (None Seen) /HPF Urine Culture Reflexed NO (NO) Urine Opiates Level NEGATIVE (NEGATIVE) Ur Methadone NEGATIVE (NEGATIVE) Urine Barbiturates NEGATIVE (NEGATIVE) Ur Phencyclidine (PCP) NEGATIVE (NEGATIVE) Urine Amphetamine NEGATIVE (NEGATIVE) U Benzodiazepine Level NEGATIVE (NEGATIVE) Urine Cocaine NEGATIVE (NEGATIVE) Urine Marijuana (THC) NEGATIVE (NEGATIVE) 08/14/23 08/14/23 Range/Units 17:57 17:57 WBC 6.9 (4.0-10.5) x10^3/uL RBC 4.93 (4.1-5.6) x10^6/uL Hgb 14.9 (12.5-18.0) g/dL Hct 44.9 (42-50) % MCV 91.1 (78-100) fL MCH 30.2 (26-32) pg MCHC 33.2 (32-36) g/dL RDW 12.7 (11.5-14.0) % Plt Count 188 (150-450) x10^3/uL MPV 10.2 (7.5-11.0) fL Gran % 69.1 H (36.0-66.0) % Immature Gran % (Auto) 0.3 (0.00-0.4) % Nucleat RBC Rel Count 0.0 (0.00-0.1) % Eos # (Auto) 0.02 (0-0.5) x10^3/uL Immature Gran # (Auto) 0.02 (0.00-0.03) x10^3u/L Absolute Lymphs (auto) 1.48 (1.0-4.6) x10^3/uL Absolute Monos (auto) 0.56 (0.0-1.3) x10^3/uL Absolute Nucleated RBC 0.00 (0.00-0.01) x10^3u/L Lymphocytes % 21.5 L (24.0-44.0) % Monocytes % 8.1 (0.0-12.0) % Eosinophils % 0.3 (0.00-5.0) % Basophils % 0.7 (0.0-0.4) % Absolute Granulocytes 4.76 (1.4-6.9) x10^3/uL Basophils # 0.05 (0-0.4) x10^3/uL Sodium 145 (137-145) mmol/L Potassium 2.9 L* (3.5-5.1) mmol/L Chloride 108 H (98-107) mmol/L Carbon Dioxide 25 (22-30) mmol/L Anion Gap 14.9 (5-15) MEQ/L BUN 18 (9-20) mg/dL Creatinine 0.80 (0.66-1.25) mg/dL Estimated GFR > 60.0 ML/MIN Glucose 90 (74-106) mg/dL Calcium 9.3 (8.4-10.2) mg/dL Total Bilirubin 1.60 H (0.2-1.3) mg/dL AST 36 (17-59) U/L ALT 33 (0-50) U/L Alkaline Phosphatase 58 (38-126) U/L Troponin I (0.000-0.034) ng/mL Serum Total Protein 7.5 (6.3-8.2) g/dL Albumin 4.6 (3.5-5.0) g/dL Urine Color (Yellow) Urine Appearance (Clear) Urine pH (4.6-8.0) Ur Specific [place] (1.005-1.030) Urine Protein (Negative) Urine Glucose (UA) (Negative) mg/dL Urine Ketones (Negative) Urine Blood (Negative) Urine Nitrite (Negative) Urine Bilirubin (Negative) Urine Urobilinogen (0.2) mg/dL Ur Leukocyte Esterase (Negative) U Hyaline Cast (Auto) (0-2) /LPF Urine Microscopic RBC (0-5) /HPF Urine Microscopic WBC (0-5) /HPF Ur Epithelial Cells (None Seen) /HPF Urine Bacteria (None Seen) /HPF Urine Culture Reflexed (NO) Urine Opiates Level (NEGATIVE) Ur Methadone (NEGATIVE) Urine Barbiturates (NEGATIVE) Ur Phencyclidine (PCP) (NEGATIVE) Urine Amphetamine (NEGATIVE) U Benzodiazepine Level (NEGATIVE) Urine Cocaine (NEGATIVE) Urine Marijuana (THC) (NEGATIVE) - Progress Progress Note: 08/14/23 19:39 Nursing note and vital signs reviewed. No food or housing insecurity noted. All lab results reviewed and shared with patient. Patient has mild hypokalemia treated with 40 mEq po KCl Serial neuro exams negative in the ER. Patient denies any focal weakness in the ER. Etiology of patient's symptoms unclear but possibly due to either hypokalemia or anxiety. Patient advised to follow-up with his family doctor. Counseled pt/family regarding: lab results, diagnosis, need for follow-up Medical Desision Making - Diagnostic Testing Diagnostic test were ordered, analyzed, and reviewed by me: Yes - Risk of complications Low Risk: Low risk of morbidity from additional dx testing or treatment - Departure Departure Disposition: Home Clinical Impression: Hypokalemia, Paresthesia and pain of both upper extremities Condition: Stable Critical Care Time: No Referrals: PEPE SHAW MD [Primary Care Provider] - Follow up/PCP as directed Instructions: Hypokalemia (DC), Paresthesia (DC) Additional Instructions: Follow-up with your family MD in 1 to 2 days please Start potassium 3 times a day for 1 week Return to ER for any focal weakness or temperature greater 100.5. Prescriptions: Potassium Chloride 20 meq PO TID 7 Days #21 tablet
[2023-08-14 18:01] LABS: Absolute Neutrophil Ct (ANC) 4.76 x10^3/uL (1.4-6.9); BASOPHIL % 0.7 % (0.0-0.4); Basophil (Absolute #) 0.05 x10^3/uL (0-0.4); Eosinophil % 0.3 % (0.00-5.0); Eosinophil (Absolute #) 0.02 x10^3/uL (0-0.5); Hematocrit 44.9 % (42-50); Hemoglobin 14.9 g/dL (12.5-18.0); IMMATURE GRAN # 0.02 x10^3u/L (0.00-0.03); IMMATURE GRAN % 0.3 % (0.00-0.4); Lymphocyte (Absolute #) 1.48 x10^3/uL (1.0-4.6); Lymphocytes % 21.5 % (24.0-44.0); Mean Cell Volume 91.1 fL (78-100); Mean Corpuscular Hemoglobin 30.2 pg (26-32); Mean Corpuscular Hgb Concent. 33.2 g/dL (32-36); Mean Platelet Volume 10.2 fL (7.5-11.0); Monocyte (Absolute #) 0.56 x10^3/uL (0.0-1.3); Monocytes % 8.1 % (0.0-12.0); Neutrophil % 69.1 % (36.0-66.0); Platelet Count 188 x10^3/uL (150-450); Red Blood Count 4.93 x10^6/uL (4.1-5.6); Red Cell Distribution Width 12.7 % (11.5-14.0); White Blood Count 6.9 x10^3/uL (4.0-10.5)
[2023-08-14 18:15] LABS: ALBUMIN 4.6 g/dL (3.5-5.0); ALKALINE PHOSPHATASE 58 U/L (38-126); ANION GAP 14.9 MEQ/L (5-15); BLOOD UREA NITROGEN 18 mg/dL (9-20); CHLORIDE 108 mmol/L (98-107); Calcium 9.3 mg/dL (8.4-10.2); Carbon Dioxide 25 mmol/L (22-30); EST GLOMERULAR FILTRATION RATE > 60.0 ML/MIN; Glucose 90 mg/dL (74-106); SGOT/AST 36 U/L (17-59); SGPT/ALT 33 U/L (0-50); SODIUM 145 mmol/L (137-145); Total Protein 7.5 g/dL (6.3-8.2)
[2023-08-14 18:19] LABS: Potassium 2.9 mmol/L (3.5-5.1)
[2023-08-14] MEDS ORDERED: Klor Con PO ONE ×2 (18:36→18:51)
[2023-08-14 18:59] LABS: Appearance Clear (Clear); Bacteria None Seen /HPF (None Seen); Bilirubin Negative (Negative); Blood Negative (Negative); Epithelial Cells None Seen /HPF (None Seen); Glucose, Urine Negative (Negative); Hyaline Casts NONE SEEN /LPF (0-2); Ketones Trace (Negative); Leukocyte Esterase Negative (Negative); Nitrite Negative (Negative); Protein,Urine Dip Negative (Negative); RBC 0-2 /HPF (0-5); Specific Gravity 1.025 (1.005-1.030); WBC 0-2 /HPF (0-5)
[2023-08-14 19:05] LABS: ADD URINE CULTURE? NO (NO)
[2023-08-14 19:07] VITALS: BP 137/92
[2023-08-14 19:10] LABS: Amphetamine,Urine NEGATIVE (NEGATIVE); Barbiturate,Urine NEGATIVE (NEGATIVE); Benzodiazepine,Urine NEGATIVE (NEGATIVE); Cocaine,Urine NEGATIVE (NEGATIVE); Methadone,Urine NEGATIVE (NEGATIVE); Opiate,Urine NEGATIVE (NEGATIVE); PCP,Urine NEGATIVE (NEGATIVE); THC,Urine NEGATIVE (NEGATIVE)
[2023-08-14 19:20] VITALS: PULSE 90; RESP 19
== END 2023-08-14 19:40 | disposition home or self-care (01) ==
LOC: ED 17:30
DX: E87.6 Hypokalemia (principal); R20.2 Paresthesia of skin; M79.601 Pain in right arm; M79.602 Pain in left arm; R42 Dizziness and giddiness; Z79.899 Other long term (current) drug therapy
CPT/HCPCS: 36415; 80053; 80307; 81001; 84484; 85025; 93005; 99283; A9270-GY